=== PATIENT | female | born 1995 | race Caucasian/White ===

== ENCOUNTER 2021-10-02 12:02 | Outpatient (CLI) | payer OTHER, SELFPAY ==
[2021-10-03 22:07] LABS: Chlamydia By Nucleic Acid AMP Negative (Negative)
[2021-10-03 22:14] LABS: Gonococcus By Nucleic Acid AMP Negative (Negative)
[2021-10-10 10:25] LABS: HPV Reflexed? NOT INDICATED
== END 2021-10-02 23:59 | disposition home or self-care (01) ==
LOC: LABSPEC 12:03
PROVIDERS: Referring Provider Nurse Practitioner Women's Health; Visit Provider Nurse Practitioner Women's Health
DX: Z12.4 Encounter for screening for malignant neoplasm of cervix (principal); Z11.3 Encounter for screening for infections with a predominantly sexual mode of transmission
CPT/HCPCS: 87491; 87591; 88175; G0145

== ENCOUNTER → 2022-01-07 | Outpatient (CLI) | payer OTHER, SELFPAY ==
[2022-01-07 14:12] LABS: Absolute Lymphocyte Count 2.32 X10^3/uL (0.83-4.51); Absolute Neutrophil Count 10.1 X10^3/uL (2.0-7.7); Basophil# 0.09 X10^3/uL; Basophil% 0.7 % (0-1); Eosinophil# 0.08 X10^3/uL; Eosinophils% 0.6 % (0-5); Hemoglobin 13.6 g/dL (12.0-15.0); Lymphocyte # 2.32 X10^3/ul (0.83-4.51); Lymphocyte % 17.2 % (19-41); Mean Corp Hgb Conc 34.9 g/dL (32-36); Mean Corpuscular Hgb 29.7 pg (27.0-32.0); Mean Corpuscular Volume 85.2 fL (81-99); Mean Platelet Vol. 10.4 fl (6.2-12.0); Monocyte# 0.83 X10^3/uL; Monocyte% 6.2 % (0-10); NRBC Flagged by Analyzer 0 % (0-5); Neutrophil # 10.09 X10^3/uL (2.7-7.7); Neutrophil % 74.9 % (47-70); Platelet Count 312 K/mm3 (150-450); RBC Distribution Width CV 12.3 % (11.6-14.6); RBC Distribution Width SD 37.9 fl (35.1-43.9); Red Blood Count 4.58 M/mm3 (4.2-5.4); White Blood Count 13.5 K/mm3 (4.4-11.0)
[2022-01-07 16:11] LABS: Amphetamine Urine VISTA NEGATIVE (<1000 ng/mL); Barbiturate Urine VISTA NEGATIVE (< 200 ng/mL); Benzodiazepine Urine VISTA NEGATIVE (< 200 ng/mL); Cocaine Urine VISTA NEGATIVE (< 300 ng/mL); Ecstacy Urine VISTA NEGATIVE (< 500 ng/mL); Methadone Urine VISTA NEGATIVE (< 300 ng/mL); PCP Urine VISTA NEGATIVE (< 25 ng/mL); THC Urine VISTA NEGATIVE (< 50 ng/mL); Vista UDS pH Range 5
[2022-01-08 09:07] LABS: HIV - WCH Non-Reactive (Nonreactive); Hepatitis B Surface Antigen Non-Reactive (Nonreactive); Rubella IgG Reactive (Nonreactive); Syphilis Antibodies Non-reactive
[2022-01-08 09:51] LABS: Hepatitis C Antibody Nonreactive (Nonreactive)
[2022-01-09 22:06] LABS: Chlamydia By Nucleic Acid AMP Negative (Negative)
[2022-01-10 15:40] LABS: Gonococcus By Nucleic Acid AMP Negative (Negative)
== END | disposition home or self-care (01) ==
LOC: PAVLAB 13:56
PROVIDERS: Referring Provider Obstetrics & Gynecology; Visit Provider Obstetrics & Gynecology
DX: Z34.00 Encounter for supervision of normal first pregnancy, unspecified trimester (principal)
CPT/HCPCS: 36415; 80307; 85025; 86703; 86762; 86780; 86803; 86850; 86900; 86901; 87086; 87340; 87491; 87591

== ENCOUNTER → 2022-04-01 | Outpatient (CLI) | payer OTHER, SELFPAY ==
--- NOTE | 2022-04-01 12:59 | US_ITS ---
STUDY: SECOND AND THIRD TRIMESTER OBSTETRICAL ULTRASOUND REASON FOR EXAM: Female, 27 years old . Anatomy LMP: TECHNIQUE: Transabdominal and Transvaginal TECHNICAL QUALITY: Adequate. PRIOR ULTRASOUND: None. FINDINGS: There is a single intrauterine fetus. The fetus is in a cephalic presentation. There is demonstrated cardiac activity with a heart rate of 140 bpm. There is a normal amniotic fluid volume. The largest amniotic fluid pocket measures 4.5 cm x 3.6 cm. The amniotic fluid index (GARRY) is within normal limits. The placenta is anterior and low lying but not previa in location. The tip of the placenta is at 1.2 cm away from the cervical os. There are Grade 0 placental changes. The cervix measures 3.3 cm in length. The bilateral adnexal regions are normal. BIOMETRY: BPD: 4.6 cm: 19 weeks, 6 days HC: 17.3 cm: 19 weeks, 6 days AC: 15.6 cm: 20 weeks, 5 days FL: 3 cm: 19 weeks, 2 days CI: 78% FL/BPD: 66% FL/HC: FL/AC: 19% HC/AC: 1.11 age by current US: 19 weeks, 5 days. LAURO by current US: 08/21/2022. Estimated weight: 332 grams, +/- 50 grams, 81 %. Age by LMP: 19 weeks, 3 days. LAURO by LMP: 08/23/2022. ANATOMY: Gender: Male Cranium: Normal lateral ventricles. Normal choroid plexus. Normal cerebellum. Normal cisterna magna. Normal face, nose and lips. Chest: Normal 4-chamber heart. Abdomen/Pelvis: Normal diaphragm. Normal stomach. Normal abdominal wall. Normal cord insertion. Normal 3 vessel cord. Minimal fullness of the renal pelvis although this is within normal limits. Normal bladder. Spine: Normal cervical spine. Normal thoracic spine. Normal lumbar spine. Normal sacrum. Extremities: Normal bilateral upper extremities. Normal bilateral lower extremities. IMPRESSION: Single live intrauterine gestation with a mean gestational age of 19 weeks and 5 days. Electronically Signed: Bassam Tamayo MD at 8:49 EDT , STUDY: FIRST TRIMESTER OBSTETRICAL ULTRASOUND REASON FOR EXAM: Female, 27 years old . Cervical length measurement. TECHNIQUE: Transvaginal TECHNICAL QUALITY: Adequate. PRIOR ULTRASOUND: None. FINDINGS: The cervical length measures 3.3 cm. There is an anterior low-lying placenta. The tip of the placenta is at 1.2 cm away from the cervical os. US/OB Anatomy Scan IMPRESSION: Low-lying anterior placenta. Cervical length measures 3.3 cm. Electronically Signed: Bassam Tamayo MD at 8:50 EDT ,
== END | disposition home or self-care (01) ==
LOC: OPUS 12:58
PROVIDERS: Visit Provider Obstetrics & Gynecology
DX: O44.42 Low lying placenta NOS or without hemorrhage, second trimester (principal); Z3A.19 19 weeks gestation of pregnancy
CPT/HCPCS: 76805; 76817; 87086

== ENCOUNTER → 2022-04-25 | Outpatient (CLI) | payer OTHER, SELFPAY | END | disposition home or self-care (01) | PROVIDERS: Visit Provider Obstetrics & Gynecology | DX: O99.891 Other specified diseases and conditions complicating pregnancy (principal); N89.8 Other specified noninflammatory disorders of vagina; R10.2 Pelvic and perineal pain; Z3A.00 Weeks of gestation of pregnancy not specified | CPT/HCPCS: 87070; 87086; 87088; 87205 ==

== ENCOUNTER → 2022-05-23 | Outpatient (CLI) | payer OTHER, SELFPAY ==
[2022-05-23 12:20] LABS: Absolute Neutrophil Count 7.7 X10^3/uL (2.0-7.7); Basophil# 0.05 X10^3/uL; Basophil% 0.5 % (0-1); Eosinophil# 0.23 X10^3/uL; Eosinophils% 2.2 % (0-5); Hemoglobin 10.3 g/dL (12.0-15.0); Lymphocyte % 10.7 % (19-41); Mean Corp Hgb Conc 31.2 g/dL (32-36); Mean Corpuscular Hgb 28.1 pg (27.0-32.0); Mean Corpuscular Volume 90.2 fL (81-99); Mean Platelet Vol. 10.7 fl (6.2-12.0); Monocyte# 0.96 X10^3/uL; Monocyte% 9.4 % (0-10); NRBC Flagged by Analyzer 0.2 % (0-5); Neutrophil # 7.71 X10^3/uL (2.7-7.7); Neutrophil % 75.2 % (47-70); Platelet Count 244 K/mm3 (150-450); RBC Distribution Width CV 12.6 % (11.6-14.6); RBC Distribution Width SD 41.2 fl (35.1-43.9); Red Blood Count 3.66 M/mm3 (4.2-5.4); White Blood Count 10.3 K/mm3 (4.4-11.0)
[2022-05-23 12:25] LABS: Glucose Challenge Gest 1H 50g 132 mg/dL (70-140)
== END | disposition home or self-care (01) ==
PROVIDERS: Referring Provider Obstetrics & Gynecology; Visit Provider Obstetrics & Gynecology
DX: Z34.00 Encounter for supervision of normal first pregnancy, unspecified trimester (principal)
CPT/HCPCS: 36415; 82950; 85025

== ENCOUNTER → 2022-06-05 | Outpatient (CLI) | payer OTHER, SELFPAY ==
--- NOTE | 2022-06-05 12:03 | US_ITS ---
STUDY: SECOND AND THIRD TRIMESTER OBSTETRICAL ULTRASOUND REASON FOR EXAM: Female, 27 years old low lying placenta TECHNIQUE: Transabdominal PRIOR ULTRASOUND: 04/01/2022. FINDINGS: There is a single intrauterine fetus. The fetus is in a cephalic presentation. There is demonstrated cardiac activity with a heart rate of 147 bpm. There is a normal amniotic fluid volume. The largest amniotic fluid pocket measures 7 cm. The amniotic fluid index (GARRY) is 18 cm. The placenta is anterior and not low-lying. There are Grade 0 placental changes. The cervix measures 4.6 cm in length. The adnexal regions are not visualized. EGA by ultrasound: 29 weeks 0 day(s) LAURO by ultrasound: 08/21/2022 US/OB Limited (No Biometrics) IMPRESSION: Living intrauterine with estimated gestational age of 29 weeks and 0 days. The placenta is anterior and not low-lying. Electronically Signed: Earnest Chang MD at 18:03 EST ,
== END | disposition home or self-care (01) ==
LOC: OPUS 12:00
PROVIDERS: Visit Provider Nurse Practitioner Women's Health
DX: O44.43 Low lying placenta NOS or without hemorrhage, third trimester (principal); Z3A.29 29 weeks gestation of pregnancy
CPT/HCPCS: 76815

== ENCOUNTER → 2022-06-28 | Outpatient (CLI) | payer OTHER, SELFPAY ==
[2022-06-28 14:25] LABS: Absolute Neutrophil Count 10.5 X10^3/uL (2.0-7.7); Basophil# 0.09 X10^3/uL; Basophil% 0.6 % (0-1); Eosinophil# 0.21 X10^3/uL; Eosinophils% 1.5 % (0-5); Hematocrit 37.3 % (37-47); Hemoglobin 11.9 g/dL (12.0-15.0); Lymphocyte % 12.7 % (19-41); Mean Corp Hgb Conc 31.9 g/dL (32-36); Mean Corpuscular Hgb 29.5 pg (27.0-32.0); Mean Corpuscular Volume 92.6 fL (81-99); Mean Platelet Vol. 10.6 fl (6.2-12.0); Monocyte# 0.99 X10^3/uL; NRBC Flagged by Analyzer 0 % (0-5); Neutrophil # 10.54 X10^3/uL (2.7-7.7); Neutrophil % 74.3 % (47-70); Platelet Count 226 K/mm3 (150-450); RBC Distribution Width CV 15.9 % (11.6-14.6); RBC Distribution Width SD 53.1 fl (35.1-43.9); Red Blood Count 4.03 M/mm3 (4.2-5.4); White Blood Count 14.2 K/mm3 (4.4-11.0)
== END | disposition home or self-care (01) ==
LOC: BIMLAB 08:13
PROVIDERS: Referring Provider Obstetrics & Gynecology; Visit Provider Obstetrics & Gynecology
DX: O99.019 Anemia complicating pregnancy, unspecified trimester (principal); Z3A.00 Weeks of gestation of pregnancy not specified
CPT/HCPCS: 36415; 85025

== ENCOUNTER → 2022-07-29 | Outpatient (CLI) | payer OTHER, SELFPAY ==
[2022-07-29 18:12] LABS: Group B Strep DNA By PCR Negative (Negative); Internal Control PASS; Probe Check PASS; Specimen Processing Control PASS
== END | disposition home or self-care (01) ==
PROVIDERS: Visit Provider Nurse Practitioner Women's Health
DX: Z34.90 Encounter for supervision of normal pregnancy, unspecified, unspecified trimester (principal)
CPT/HCPCS: 87081; 87653

== ENCOUNTER 2022-08-06 11:15 | Inpatient (IN) | payer OTHER, SELFPAY ==
[2022-08-06] VITALS (53 sets, daily range): BP systolic 78–132; BP diastolic 39–79; PULSE 57–120; TEMP 35.4–36.6; O2SAT 92–100; BMI 26.7
--- NOTE | 2022-08-06 11:26 | HP.PCM.OB_ITS ---
HPI - General General Date of Admission: 08/06/22 HPI Narrative SELAM MAHER, is a 27 y/o @ 37 weeks 4 days who presents to L&D from my office today for grossly ruptured membranes. She was found to be 1.5/80/-2 and ruptured with clear fluid and vernix present Maternal Data Information LAURO Calculator Estimated Delivery Date Method Current WG Current Estimate 08/23/22 Ultrasound #1 37w 4d Other Estimates 08/15/22 LMP (Certain) 38w 5d PFSH PFSH Home Medications acetaminophen 325 mg capsule (Tylenol) 325 mg PO ONCE PRN 10/02/21 [History Last Taken Unknown] docosahexaenoic acid 200 mg capsule ( DHA) mg PO 10/02/21 [History Last Taken Unknown] famotidine 20 mg tablet 20 mg PO DAILY PRN 10/02/21 [History Last Taken Unknown] levocetirizine 5 mg tablet (Xyzal) 5 mg PO QPM PRN 10/02/21 [History Last Taken Unknown] ferrous sulfate 325 mg (65 mg iron) tablet (Feosol) 325 mg PO DAILY 05/27/22 [History Last Taken Unknown] Allergy/AdvReac Type Severity Reaction Status Date / Time No Known Allergies Allergy Verified 08/06/22 10:55 Family History Mother Thyroid disorder Pre-diabetes Father Hypertension Myocardial infarction Glaucoma Grandmother Thyroid disorder Cancer cervical Grandfather Myocardial infarction Social History adopted: No household members: spouse and friend(s) housing: house number of children: 0 current occupational status: employed current occupation: [employer] current occupational exposures/hazards: No pets and animals: Yes (not managing litter box) pets and animals: cat(s) leisure activities: other history of recent travel: Yes details: [place] out of sta te: Yes out of country: No sexually active: Yes Smoking Status: Never smoker alcohol intake: former details: social drinking ocassional prior to substance use type: does not use well-balanced diet: daily or most days caffeine: Yes (8-12 oz/day) Type: carbonated beverages and tea eating out: rarely or never during the past year weight has: remained stable what type of physical activity do you participate in: walking and yoga frequency: 1-2 times per week alex/tenriism: Zoroastrianism seatbelt use: always do you feel safe at home: Yes additional social history: - Ra History 1 Elective abortions Hx Para 0 Spontaneous abortions Hx # Term Pregnancies Ectopic pregnancies Hx # Pregnancies Multiple births # of living children Visit Details Expected Delivery Route/Plan Labor Preferences- CB/BF classes: scheduled labor support person: Ra labor intervention preferences: [] pain management options preferred: epidural cut cord/dad catch: yes : yes PP control planned: discussed. IUD at 6 weeks (Mirena) discussed possible routes of delivery and associated risks: [] special requests: elective IOL for 39 weeks. traveling x3 months august 24 Plans Covid status: discussed Flu vaccine: discussed Tdap vaccine:complete Rhogam: na LARC form signed: yes movement and labor precautions reviewed. Problem list reviewed and updated with the most current plan of care details and appropriate orders placed. Relevant counseling for the gestational age provided. Continue routine care and follow up unless otherwise noted in visit notes/problem list details OB Flowsheet Initial Weight: Not Recorded Date -?-?-?-?-?-?-?-?-?-?-?-?- EGA Weight BP Urine Prot -?-?-?-?-?-?-?-?-?-?-?-?- Glucose FHR FuHt Pres Dilation -?-?-?-?-?-?-?-?-?-?-?-?- Effaced St Visit Note 01/07/22 -?-?-?-?-?-?-?-?-?-?-?-?- 7w 3d 117 lb 4 oz 134/82 -?-?-?-?-?-?-?-?-?-?-?-?- 175 -?-?-?-?-?-?-?-?-?-?-?-?- SM- CRL NOT cons with LMP changed to 7w3d 02/04/22 -?-?-?-?--?-?-?-?-?-?-?-?- 11w 3d 102/64 Negative -?-?-?-?-?-?-?-?-?-?-?-?- Negative 160 -?-?-?-?-?-?-?-?-?-?-?-?- SM- no vb crampi ng 03/04/22 -?-?-?-?-?-?-?-?-?-?-?-?- 15w 3d 121 lb 106/60 Negative -?-?-?-?-?-?-?-?-?-?-?-?- Negative 145 -?-?-?-?-?-?-?-?-?-?-?-?- SM- no vb crampi ng 03/06/22 -?-?-?-?-?-?-?-?-?-?-?-?- 15w 5d 120 lb 2 oz 113/75 Nega tive -?-?-?-?-?-?-?-?-?-?-?-?- Negative 147 -?-?-?-?-?-?-?-?-?-?-?-?- JV- no lof, vagi nal bleeding, or cramping. She fell yesterday coming down the stairs. reassuring heart tones and ultrasound at bedside performed. 04/01/22 -?-?-?-?-?-?--?-?-?-?-?-?- 19w 3d 126 lb 118/80 -?-?-?-?-?-?-?-?-?-?-?-?- 140 -?-?-?-?-?-?-?-?-?-?-?-?- Sm- no vb lof go od fm no reuglar ctx Sm- no vb lof good fm no reg ular ctx 04/25/22 -?-?-?-?-?-?-?-?-?-?-?-?- 22w 6d 133 lb 132/76 Negative -?-?-?-?-?-?-?-?-?-?-?-?- Negative 165 -?-?-?-?-?-?-?-?-?-?-?-?- JV - no lof, vag inal bleeding, or dec fm. saw blood on dip at work today and was concerned due to low lying placenta. reason for initial dip was pelvic pressure and back pain. on exam there is a moderate amount of metzger /white vaginal discharge. starting macrobid. will send urine for culture. 05/01/22 -?-?-?-?-?-?-?-?-?-?-?-?- 23w 5d 133 lb 113/73 Negative -?-?-?-?-?-?-?-?-?-?-?-?- Negative 155 -?-?-?-?-?-?-?-?-?-?-?-?- JV- no problems this week. no more blood in urine and patient states that she feels better. follow up scan ordered at 28 weeks to look at the placenta. 05/27/22 -?-?-?-?-?-?-?-?-?-?-?-?- 27w 3d 140 lb 2 oz 106/68 Nega tive -?--?-?-?-?-?-?-?-?-?-?-?- Negative 143 -?-?-?-?-?-?-?-?-?-?-?-?- MH-No Vb, LOF. G ood FM. Started Fe daily/anemia. Larc. 06/13/22 -?-?-?-?-?-?-?-?-?-?-?-?- 29w 6d 146 lb 116/73 Negative -?-?-?-?-?-?-?-?-?-?-?-?- Negative 140 29 -?-?-?-?-?-?-?-?-?-?-?-?- LC-no vb/ctx/lof . good fm. tdap today. discussed cord blood/dcc. 06/28/22 -?-?-?-?-?-?-?-?-?-?-?-?- 32w 0d 149 lb 116/68 Negative -?-?-?-?-?-?-?-?-?-?-?-?- Negative 140 32 -?-?-?-?-?-?-?-?-?-?-?-?- - no vb lof go od fm no regular ctx discussed sleep habits 07/12/22 -?-?-?-?-?-?-?-?-?-?-?-?- 34w 0d 152 lb 2 oz 104/70 -?--?-?-?-?-?-?-?-?-?-?-?- 136 34 -?-?-?-?-?-?-?-?-?-?-?-?- LC- no lof/vb/ct x. good fm. 07/24/22 -?-?-?-?-?-?-?-?-?-?-?-?- 35w 5d 154 lb 4 oz 118/70 Nega tive -?-?-?-?-?-?-?-?-?-?-?-?- Negative 141 36 -?-?-?-?-?-?-?-?-?-?-?-?- -No VB, LOF. G ood FM. Some RL pain 07/29/22 -?-?--?-?-?-?-?-?-?-?-?-?- 36w 3d 155 lb 118/72 Negative -?-?-?-?-?-?-?-?-?-?-?-?- Negative 142 36 Cephalic 0 .5 -?-?-?-?-?-?-?-?-?-?-?-?- 20 -3 -No Vb, LOF or CTX. GBS. 08/06/22 -?-?-?-?-?-?-?-?-?-?-?-?- 37w 4d 155 lb 8 oz 134/76 -?-?-?-?-?-?-?-?-?-?-?-?- 152 Cephalic 1.5 -?-?-?--?-?-?-?-?-?-?-?-?- 80 -2 JV- pt com [place] of leaking fluid and some mild contractions. on exam she is grossly ruptured with vernix present. ROS Constitutional Constitutional: Denies change in weight, fatigue, fever(s), headache(s), poor appetite or weakness Eyes Eyes: Denies blurry vision, change in vision, seeing flashes or spots in vision ENT HEENT: Denies dizziness, headache(s), loss taste/smell or sore throat Cardiovascular Cardiovascular: Denies chest pain, dizziness, dyspnea, irregular heart rhythm, leg edema, palpitations, rapid heart rate or vomiting Respiratory/Chest Respiratory/Chest: Denies chest tightness, cough, dyspnea or breast pain Gastrointestinal Gastrointestinal: Denies abdominal pain, anorexia, constipation, cramping, diarrhea, hemorrhoids, vomiting or weight changes Genitourinary Genitourinary: Denies dysuria, flank pain, genital lesions, genital pain, urinary frequency or urinary urgency Musculoskeletal Musculoskeletal: Denies back pain, difficulty walking, joint pain, limited range of motion, muscle cramps or numbness Integumentary Integumentary: Denies lesions or unusual bruising Neurologic Neurologic: Denies abnormal movements, abnormal speech, dizziness, numbness, seizure-like activity or syncope Psychiatric Psychiatric: Denies anxiety, behavioral changes, change in appetite, change in libido, cognitive impairment, confusion, depression, difficulty concentrating, hallucinations or suicidal thoughts Endocrine Endocrinology: Denies excessive sweating, polydipsia or polyuria Hematologic/Lymphatic Hematologic/Lymphatic: Denies easy bleeding, easy bruising or lymphadenopathy Allergic/Immunologic Allergic/Immunologic: Denies itchy eyes, lip swelling, seasonal rhinorrhea, rhinitis, throat swelling, tongue swelling, eczemia, wheezing or asthma Physical Exam Const alert, oriented x3, no apparent distress and healthy appearing General Appearance: cooperative; Negative for anxious HEENT normocephalic Face and Sinus: normal facial exam Eyes EOMs intact bilaterally and no scleral icterus General Eye: normal appearance of both eyes Neck full ROM and supple Lymph Lymphatic: no lymphadenopathy noted Chest Chest: abnormal inspection of the chest Resp normal respiratory effort Effort and Inspection: able to speak in complete sentences Cardio regular rate GI soft to palpation and non-tender Inspection: gravid Palpation: soft; Negative for tender external exam normal Amniotic Fluid: ROM+plus Back/Spine no CVA tenderness Extremity normal to inspection, full ROM and no clubbing, cyanosis or edema General Extremity: Negative for calf tenderness or edema Skin Lesions: no lesions Rashes: no rashes Psych mental status grossly normal Labs Labs Labs: Blood Type O POSITIVE Antibody Screen NEGATIVE Hct 37.3 % (37-47) Hgb 11.9 g/dL (12.0-15.0) L Obstetrics US Syphilis Total Ab Non-reactive Rubella IgG Antibody Reactive (Nonreactive) Hep Bs Antigen Non-Reactive (Nonreactive) Chlamydia DNA (JUWAN) Negative (Negative) Neisseria gonorrhoeae DNA (JUWAN) Negative (Negative) HIV 1&2 Antibody Non-Reactive (Nonreactive) Glucose 1 Hr 50 gm 132 mg/dL (70-140) Group B Strep DNA Negative (Negative) Assessment & Plan (1) Anemia affecting : COMMENT: fe/Repeat 4 weeks:resolved (2) Hematuria: COMMENT: resolved. thinks past kidney stone (3) Supervision of normal first : COMMENT: PRR , LAURO 08/23/22, boy Spouse Ra (4) : QUALIFIERS: Weeks of gestation: 34 weeks Qualified Code(s): Z3A.34 - 34 weeks gestation of COMMENT: GBS neg, declined NIPT, afp, & Carrier Testing bnl anatomy PLAN: Plan Patient presents IAL, plan expectant management for , pitocin PRN if needed. Pain management: plans epidural. GBS negative. Management of any complications: none I have reviewed the [facility] and made any clinically relevant updates.
[2022-08-06] MEDS: Lactated Ringers 1,000 ML 50 ML IV (12:48)
[2022-08-06] MEDS: Oxytocin 15 Units/NS 250ml 15 UNITS/250 ML IV.SOLN 2 UNITS IV (13:03)
[2022-08-06 13:11] LABS: Absolute Lymphocyte Count 1.95 X10^3/uL (0.83-4.51); Absolute Neutrophil Count 11.7 X10^3/uL (2.0-7.7); Basophil# 0.08 X10^3/uL; Basophil% 0.5 % (0-1); Eosinophil# 0.11 X10^3/uL; Eosinophils% 0.7 % (0-5); Hematocrit 40.3 % (37-47); Hemoglobin 13.2 g/dL (12.0-15.0); Lymphocyte # 1.95 X10^3/ul (0.83-4.51); Lymphocyte % 12.7 % (19-41); Mean Corp Hgb Conc 32.8 g/dL (32-36); Mean Corpuscular Hgb 28.6 pg (27.0-32.0); Mean Corpuscular Volume 87.4 fL (81-99); Mean Platelet Vol. 10.7 fl (6.2-12.0); Monocyte# 1.23 X10^3/uL; NRBC Flagged by Analyzer 0 % (0-5); Platelet Count 250 K/mm3 (150-450); RBC Distribution Width CV 15.3 % (11.6-14.6); RBC Distribution Width SD 49.2 fl (35.1-43.9); Red Blood Count 4.61 M/mm3 (4.2-5.4); White Blood Count 15.4 K/mm3 (4.4-11.0)
[2022-08-06] MEDS: LACTATED RINGERS 500 ML 999 ML IV ×2 (16:53→18:35)
[2022-08-06] MEDS: fentaNYL-bupivacaine (epidural) 100 ML BAG EPIDURAL (17:42)
--- NOTE | 2022-08-06 22:26 | OP.PCM_ITS ---
Assessment & Plan (1) : QUALIFIERS: Weeks of gestation: 34 weeks Qualified Code(s): Z3A.34 - 34 weeks gestation of COMMENT: GBS neg, declined NIPT, afp, & Carrier Testing bnl anatomy (2) Supervision of normal first : COMMENT: PRR , LAURO 08/23/22, boy Spouse Ra (3) Hematuria: COMMENT: resolved. thinks past kidney stone (4) Anemia affecting : COMMENT: fe/Repeat 4 weeks:resolved Maternal Data Information LAURO Calculator Estimated Delivery Date Method Current WG Current Estimate 08/23/22 Ultrasound #1 37w 4d Other Estimates 08/15/22 LMP (Certain) 38w 5d Final LAURO: 08/23/22 Final LAURO Source: US <20 weeks Gestational age: 37 weeks 4 days [place] Doctor Who Attended Delivery: Drea Olivares Vaginal Delivery Maternal Presentation Maternal Presentation: Spontaneous Rupture of Membranes Type of Induction: Pitocin Operative Information Date of Procedure: 08/06/22 Pre-Operative Diagnosis: 37 weeks 4 days srom, , heart rate decelerati ons and bradycardia Post-Operative Diagnosis: 37 weeks 4 days srom, , heart rate decelerations and bradycardia Surgery / Procedure Performed: Vacuum Assisted Vaginal Delivery Type of Anesthesia: Epidural Anesthesiologist: Krystina Gordon Drain: Preciado to straight drain Estimated Blood Loss: 200cc Time of Delivery: 10:21 Findings Description of Procedure: This is a27 year old @ 37 weeks 4 days who was admitted to labor and delivery for SROM x 7 hours at home. The decision was made to perform a vacuum extraction due to heart rate decelerations and maternal inability to push effectively. the patient pushed for about 2.5 hrs and moved the station from +1 to +2 station. The risk benefits and alternatives of the procedure were discussed with the patient and verbal consent was obtained. The infant was noted to be at a +2 station, the cervix was completely dilated. The 's EFW was believed to be less than 4000 grams. The infant's head was noted to be in the right occiput anterior presentation. The bladder was emptied. The vacuum was placed in the correct placement in front of the posterior fontanelle. This was confirmed digitally. With the patient's next contraction, the vacuum was inflated and a gentle downward pressure was used to assist with bringing the baby's head to a +3 station. With 1 pull and 0 pop offs. The head was delivered atraumatically. No nuchal cord was noted. The anterior shoulder followed by the posterior shoulder were delivered without difficulty. The infant was handed off to the patient's chest. The infant was found to be vigorous and crying and moving of all 4 extremities. The mouth and nares were bulb suctioned. After 60 second delay the cord was clamped and cut and the infant was handed off to the awaiting nurses for routine assessment. The placenta was delivered with gentle traction and uterine massage. Inspection of the vagina cervix and perineum was performed. There were no lacerations to the vagina or to the cervix. The peritoneum was found to be intact. The patient tolerated the procedure well sponge lap and needle counts were correct x2 and she is now recovering in stable condition. Presentation: TOÑO Amniotic Fluid Description: Clear Placental Delivery Description: Spontaneous Placenta Disposition: [facility] Cord Vessel Description: 3 Vessels Cord Entanglement: None Cord Gases: ABG and VBG Infant A Gender: Male (1 minute): 8 (5 minute): 9 Delayed Cord Clamping: Yes Post Vaginal Delivery Medications Given After Delivery: IV Pitocin Episiotomy Description: None Laceration: None Complication Complications: None Multi Select Codes Urinary/Genital Urinary/Genital CPT Codes: 20661 Vaginal Delivery global pkg (with vacuum extraction )
--- NOTE | 2022-08-06 22:33 | DCINST_ITS ---
Discharge Instructions Diet Discharge Diet: No restrictions Activity Discharge Activity: Return to Normal Activity, May Not Drive (while taking narcotic pain medications.) and May Shower May resume sexual activity in: 4-6 weeks Dressing / Incision Call your doctor if your incision/area has: Continuous Slow Oozing, Sudden Increased Bleeding, Increased Pain/ Swelling, Increased Redness and Foul Smelling Discharge Follow Up Care Please Follow Up With: Thalia Francisco, When: Call [phone] to make an appointment with your doctor in 6 weeks. If you had elevated blood pressure or 4th degree laceration, you will need to be seen in 2 weeks. Test Results: Test results from this visit will be discussed in further detail at your follow- up appointment, if applicable. Discharge Plan Admission Admit Date/Time: 08/06/22 11:15 Attending Provider: Thalia Francisco Primary Care Provider: Care Physician,No Primary Discharge Orders/Prescriptions Prescriptions: No Action DHA 200 mg capsule PO acetaminophen [Tylenol] 325 mg capsule 325 mg PO ONCE PRN (Reason: pain) famotidine 20 mg tablet 20 mg PO DAILY PRN (Reason: heartburn) ferrous sulfate [Feosol] 325 mg (65 mg iron) tablet 325 mg PO DAILY magnesium Tablet PO Referrals / Follow Up: Care Physician,No Primary [Primary Care Provider] -
[2022-08-07] VITALS (9 sets, daily range): BP systolic 102–116; BP diastolic 27–67; PULSE 74–114; RESP 14–20; TEMP 36.2–36.9; O2SAT 95–99
[2022-08-07] MEDS: Naproxen 500 MG Tablet PO ×2 (03:15→16:32)
--- NOTE | 2022-08-07 07:15 | NURSING ---
bedside report given to Leticia Martinez RN and Sybil Baires RN who are assuming care of pt at this time
--- NOTE | 2022-08-07 07:41 | PCM.PN.OB ---
Subjective Subjective Patient doing well without complaints. Tolerating PO. Ambulating and voiding without difficulty. Feeding well. Denies chest pain, shortness of breath, calf pain/swelling, fevers, chills, lightheadedness. Objective Data Objective Data Vital Signs: Vital Signs Temp Pulse Resp BP Pulse Ox O2 Del Method 98.4 F 114 H 20 H 109/60 95 Room Air 08/07/22 03:20 08/07/22 03:20 08/07/22 03:20 08/07/22 03:20 08/07/22 03:20 08/07/22 03:20 Oxygen Delivery Method Room Air Weight: 156 lb Body Mass Index (BMI) 26.7 Intake & Output: Intake and Output for Last 24 Hours 08/05/22 08/06/22 08/07/22 23:59 23:59 23:59 Intake Total 1489.84 / 1489.84 Output Total 2049 / 2049 300 / 300 Balance -560.16 / -560.16 -300 / -300 Lab / Micro Data Result Diagrams: 08/06/22 12:48 Labs: Laboratory Results - last 24 hr 08/06/22 12:48: WBC 15.4 H, RBC 4.61, Hgb 13.2, Hct 40.3, MCV 87.4, MCH 28.6, MCHC 32.8, RDW Std Deviation 49.2 H, RDW Coeff of Emmy 15.3 H, Plt Count 250, MPV 10.7, Immature Gran % (Auto) 2.100 H, Neut % (Auto) 76.0 H, Lymph % (Auto) 12.7 L, [place] % (Auto) 8.0, Eos % (Auto) 0.7, Baso % (Auto) 0.5, Absolute Neuts (auto) 11.7 H, Absolute Lymphs (auto) 1.95, Nucleated RBC % 0 08/06/22 12:48: Blood Type O POSITIVE, Antibody Screen NEGATIVE Physical Exam Const alert and oriented x3 HEENT normocephalic Eyes PERRL Neck full ROM Resp normal respiratory effort GI soft to palpation GI Narrative: FF below U Assessment & Plan (1) Vacuum extractor delivery, delivered: COMMENT: 08/06/22 Ashutosh CORRAL PLAN: Plan s/p PPD # 1 1. routine post delivery care 2. breast feeding- support given 3. rh positive 4. rubella immune
[2022-08-08 02:55] VITALS: BP 98/56; PULSE 86; RESP 14; TEMP 36.1; O2SAT 96
[2022-08-08 08:31] VITALS: BP 105/57; PULSE 78; RESP 16; TEMP 36.1; O2SAT 97
--- NOTE | 2022-08-08 08:41 | PCM.PN.OB ---
Subjective Subjective pt is is nicu with baby and sitting up in chair. She denies heavy bleeding or severe cramping. No complaints today. She is comfortable going to hotel status Objective Data Objective Data Vital Signs: Vital Signs Temp Pulse Resp BP Pulse Ox O2 Del Method 97.0 F L 78 16 105/57 L 97 Room Air 08/08/22 08:31 08/08/22 08:31 08/08/22 08:31 08/08/22 08:31 08/08/22 08:31 08/08/22 08:31 Oxygen Delivery Method Room Air Weight: 156 lb Body Mass Index (BMI) 26.7 Intake & Output: Intake and Output for Last 24 Hours 08/06/22 08/07/22 08/08/22 23:59 23:59 23:59 Intake Total 1489.84 / 1489.84 Output Total 2049 / 2049 300 / 300 Balance -560.16 / -560.16 -300 / -300 Lab / Micro Data Result Diagrams: 08/06/22 12:48 ROS Constitutional Constitutional: Denies chills, fatigue, fever(s), poor appetite or weakness Eyes Eyes: Denies blurry vision, change in vision, seeing flashes or spots in vision ENT HEENT: Denies dizziness, headache(s), loss taste/smell or sore throat Cardiovascular Cardiovascular: Denies chest pain, dizziness, dyspnea, irregular heart rhythm, palpitations or rapid heart rate Respiratory/Chest Respiratory/Chest: Denies chest tightness, cough, dyspnea or breast pain Gastrointestinal Gastrointestinal: Denies abdominal pain, constipation or vomiting Genitourinary Genitourinary: Denies dysuria or flank pain Musculoskeletal Musculoskeletal: Denies difficulty walking, joint pain, limited range of motion or numbness Neurologic Neurologic: Denies abnormal movements, abnormal speech, dizziness, numbness, seizure-like activity or syncope Psychiatric Psychiatric: Denies anxiety, behavioral changes, change in appetite, confusion, depression or suicidal thoughts Physical Exam Const alert, oriented x3 and no apparent distress General Appearance: cooperative and comfortable Resp normal respiratory effort Cardio regular rate GI normal to inspection, nondistended, normoactive bowel sounds GI Narrative: uterus is firm below umbilicus Palpation: soft Back/Spine no CVA tenderness and thoraco-lumbar ROM normal Extremity normal to inspection, no clubbing, cyanosis or edema, no calf tenderness and no pedal edema Psych mental status grossly normal, thought process normal, cooperative, affect normal, speech normal, activity/motor behavior normal, denies homicidal ideation and denies suicidal ideation Assessment & Plan (1) Vacuum extractor delivery, delivered: COMMENT: 08/06/22 Ashutosh CORRAL PLAN: Plan s/p PPD # 2 1. routine post delivery care 2. breast feeding- support given 3. rh positive 4. rubella immune 5. dc to hotel status today
--- NOTE | 2022-08-08 13:00 | NURSING ---
This nursing staffing coordinator reviewed the documentation completed by Shola Finney, student nurse.
[2022-08-08] MEDS: Senna/Docusate Sodium 1 Tablet PO (14:28)
[2022-08-08 14:34] VITALS: BP 97/49; PULSE 71; RESP 18; TEMP 36.2; O2SAT 97
== END 2022-08-08 18:15 | disposition home or self-care (01) | DRG 807 ==
PROVIDERS: Admitting Provider Obstetrics & Gynecology; Visit Provider Obstetrics & Gynecology
DX: O76 Abnormality in fetal heart rate and rhythm complicating labor and delivery (principal); Z37.0 Single live birth; O42.92 Full-term premature rupture of membranes, unspecified as to length of time between rupture and onset of labor; O99.02 Anemia complicating childbirth; Z3A.37 37 weeks gestation of pregnancy
CPT/HCPCS: 59025; 59050; 85025; 86850; 86900; 86901; 99221; J7120; G0378